=== PATIENT | female | born 1955 | race Two or more races ===

== ENCOUNTER 2017-08-11 12:45 | Emergency (ER) | payer OTHER, SELFPAY ==
--- NOTE | 2017-08-11 12:45 | DT_ITS ---
This patient was seen during an EMR downtime August 05, 2017 - August 12, 2017. This patient may have a combination of paper and electronic documentation or all paper documentation. All documentation is viewable within the e-chart portion of [facility] for each patient visit.
--- NOTE | 2017-08-11 12:45 | CT_ITS ---
STUDY: CT BRAIN WITHOUT CONTRAST REASON FOR EXAM: Female, 61 years old. Trauma and fall. Abrasions in the right side of the face RADIATION DOSAGE (If Supplied By Facility): CTDIvol = ( 44.99 ) mGy, DLP = ( 745.49 ) mGycm TECHNIQUE: Transaxial CT imaging of the brain was performed without administration of intravenous contrast material. Individualized dose optimization techniques were used for this CT. COMPARISON: None. FINDINGS: No evidence for shift of midline structures, mass effect or compression of ventricles noted. No acute intra-articular extra-axial hemorrhage is seen. No abnormal intracranial fluid collections identified. Basal cisterns are patent. Posterior fossa structures demonstrate no discrete mass. Ventricular system appears unremarkable. Few scattered foci of low-attenuation in the periventricular and subcortical white matter which are nonspecific in imaging however may relate with mild chronic small vessel disease. Calvarium is intact. Mild mucosal thickening of the ethmoid vessels. The mastoid air cells are clear. IMPRESSION: No evidence for acute intracranial hemorrhage, mass effect or acute large territory infarcts. Specifically, no evidence for acute intracranial traumatic injury Mild soft tissue swelling along the right frontal scalp as well as the facial region Electronically Signed: Maurilio Purcell, at 13:08 EDT Tel , Service support , CT/Brain/Head without Contrast
--- NOTE | 2017-08-11 12:55 | RAD_ITS ---
STUDY: X-RAY - LEFT WRIST REASON FOR EXAM: Female, 61 years old. Trauma TECHNIQUE: 3 view(s) of the wrist were obtained. COMPARISON: None. FINDINGS: There is a comminuted impacted intra-articular fracture of the distal radius with dorsal displacement of the distal fragment and dorsal tilt. There is a displaced fracture of the ulnar styloid process. There is a positive ulnar variance. There is soft tissue deformity and swelling. Normal radiocarpal articulation. Normal carpal bones. Normal carpal articulations. There is mild degenerative arthrosis of the carpometacarpal articulation of the thumb. Normal second through fifth carpometacarpal articulations. Normal visualized metacarpal bones. RAD/Wrist min 3 Views IMPRESSION: Comminuted displaced intra-articular fracture of the distal radius with dorsal tilt. Displaced ulnar styloid process fracture. Electronically Signed: Gloria Sloan MD at 13:14 EDT Tel , Service support ,
--- NOTE | 2017-08-11 14:30 | RAD_ITS ---
STUDY: X-RAY - LEFT WRIST REASON FOR EXAM: Closed reduction in ER. TECHNIQUE: 2 fluoroscopic view(s) of the wrist were obtained. COMPARISON: Radiograph report 08/11/2017. FINDINGS: There is a distal radial fracture with near anatomical alignment and position. There is an ulnar styloid process avulsion fracture. Electronically Signed: Aureliano Mckinley MD at 15:47 EDT Tel , Service support , RAD/Wrist 2 Views
--- NOTE | 2017-08-11 14:55 | RAD_ITS ---
STUDY: X-RAY - LEFT WRIST REASON FOR EXAM: Female, 61 years old. Post reduction TECHNIQUE: 3 view(s) of the wrist were obtained. COMPARISON: None. FINDINGS: There is a splint placed over the distal left radius. There is improved alignment since the prior study. The lateral view shows near anatomic position and alignment of the displaced angulated fracture of the distal radius seen on prior study. There are persistently visualized comminuted intra-articular fracture of the distal radius. There is an ulnar styloid process fracture. RAD/Wrist min 3 Views IMPRESSION: Improved alignment of the wrist status post reduction. Electronically Signed: Gloria Sloan MD at 15:33 EDT Tel , Service support ,
== END 2017-08-11 15:30 | disposition home or self-care (01) ==
LOC: ED 08-12 07:39
PROVIDERS: Emergency Provider Emergency Medicine; Family Provider Family Medicine; PCP Family Medicine
DX: S52.572A Other intraarticular fracture of lower end of left radius, initial encounter for closed fracture (principal); S52.612A Displaced fracture of left ulna styloid process, initial encounter for closed fracture; S00.83XA Contusion of other part of head, initial encounter; S00.81XA Abrasion of other part of head, initial encounter; R40.2410 Glasgow coma scale score 13-15, unspecified time; W19.XXXA Unspecified fall, initial encounter; Y93.01 Activity, walking, marching and hiking; Y92.9 Unspecified place or not applicable; G47.30 Sleep apnea, unspecified; F32.9 Major depressive disorder, single episode, unspecified; Z79.899 Other long term (current) drug therapy
CPT/HCPCS: 25605; 70450; 73100; 73110; 76000; 96360; 96361; 99284; J7030; A4216

== ENCOUNTER → 2019-04-27 | Outpatient (CLI) | payer OTHER, SELFPAY ==
--- NOTE | 2019-04-27 15:54 | BI_ITS ---
MAMMOGRAPHY - BILATERAL SCREENING REASON FOR EXAM: Female, 63 years old. Routine annual screening examination. PERTINENT HISTORY: Mother had breast cancer BILATERAL DIGITAL MAMMOGRAM WITH TOMOSYNTHESIS: Mediolateraloblique and craniocaudal views demonstrate no evidence of dominant parenchymal masses. No cluster of microcalcifications is seen. No evidence of skin thickening is identified. There is a questionable area of architectural distortion involving the superior lateral aspect of the left breast at about the 2 or 3:00 position. This is seen only on the breast tomosymphysis images. This represents a change from previous obtained on 12/14/2015 Breast Density: The breast tissue is extremely dense which may lower the sensitivity of mammography. CAD was used to assist in final assessment. IMPRESSION: A questionable area of architectural distortion is noted involving the superior lateral aspect the left breast and a focused left breast ultrasound is recommended for further dilation. FINAL ASSESSMENT: BI-RAD CATEGORY 0 INCOMPLETE: (NEEDS ADDITIONAL IMAGINING EVALUATION) Electronically Signed: Mu Brambila, at 18:18 EST Tel , Service support , BI/SCREEN MAMM (CAD) W/ELBERT WHITE
== END | disposition home or self-care (01) ==
LOC: OPBI 15:51
PROVIDERS: Referring Provider Family Medicine; Visit Provider Family Medicine
DX: Z12.31 Encounter for screening mammogram for malignant neoplasm of breast (principal)
CPT/HCPCS: 77063; 77067

== ENCOUNTER → 2019-04-29 07:54 | Outpatient (CLI) | payer OTHER, SELFPAY ==
--- NOTE | 2019-04-29 07:56 | US_ITS ---
STUDY: ULTRASOUND BREAST - LEFT REASON FOR EXAM: Female, 63 years old. Questionable nodular density in the superior lateral aspect of the left breast , noted on the most recent mammogram of 04/27/2019 TECHNIQUE: Axial and longitudinal images of the LEFT breast were performed with a high resolution ultrasound transducer. # OF IMAGES: 43 COMPARISON: Left breast mammogram obtained on 04/27/2019 FINDINGS: LEFT Breast: There is a lesion in the superior lateral quadrant. The lesion measures 0.7 x 0.8 x 0.2 cm in size. Clock notation: 1 o''clock position. Distance from nipple: 2 cm. Posterior Enhancement: Yes Posterior Shadowing: No Margins: Sharp Echogenicity: Hypoechoic Compression effect on Shape: Compresses US/Breast Limited Unilateral IMPRESSION: The nodular density noted on the recent mammogram represents a benign cyst ASSESSMENT CATEGORY: BIRADS Category 2: Benign. A letter regarding these results will be sent to the patient by the facility within 30 days. Electronically Signed: Mu Brambila, at 16:20 EST Tel , Service support ,
== END ==
PROVIDERS: Referring Provider Family Medicine; Visit Provider Family Medicine
DX: N60.02 Solitary cyst of left breast (principal)
CPT/HCPCS: 76642

== ENCOUNTER → 2019-09-29 | Outpatient (CLI) | payer OTHER, SELFPAY | END | disposition home or self-care (01) | LOC: LABSPEC 13:21 | PROVIDERS: Visit Provider Family Medicine Hospice and Palliative Medicine | DX: Z11.59 Encounter for screening for other viral diseases (principal) | CPT/HCPCS: 87635; 94799; U0003 ==